=== PATIENT | male | born 1990 | race Caucasian/White ===

== ENCOUNTER 2024-09-16 12:18 | Emergency (ER) | payer MEDICAID ==
[~2024-09-16] VITALS: Ht 182.9 cm; Wt 68.0 kg
[2024-09-16 12:20] VITALS: O2SAT 96
[2024-09-16 12:52] LABS: BASOPHILS % 0.6 % (0.0-2.0); HEMATOCRIT. 39.1 % (42.0-52.0); HEMOGLOBIN. 13.1 g/dL (14.0-18.0); LYMPHOCYTES % 22.8 % (20.0-50.0); MEAN CORPUSCULAR HGB CONC 33.4 g/dL (31.0-37.0); MEAN CORPUSCULAR VOLUME 83.6 fL (80.0-94.0); MEAN PLATELET VOLUME 6.6 fl (7.4-10.4); MONOCYTES % 7.7 % (2.0-8.0); NEUTROPHILS % 67.9 % (40.0-76.0); PLATELET 215 x1000/uL (130-400); RED BLOOD CELL COUNT 4.68 mill/uL (4.7-6.1); RED CELL DISTRIBUTION WIDTH 13.6 % (11.6-14.6); WHITE BLOOD COUNT 5.8 x1000/uL (4.5-11.0)
[2024-09-16 12:59] LABS: CALCIUM 9.4 mg/dL (8.7-10.4); CARBON DIOXIDE 29 mEq/L (21-32); CHLORIDE 109 mEq/L (98-107); POTASSIUM 3.7 mEq/L (3.5-5.1); SODIUM 144 mEq/L (136-145)
[2024-09-16 13:04] LABS: CREATININE 0.8 mg/dL (0.6-1.3)
[2024-09-16 13:05] LABS: ETHANOL BLOOD < 10 mg/dL (<10); GLUCOSE 96 mg/dL (70-105); UREA NITROGEN BLOOD 11 mg/dL (9-23)
[2024-09-16] MEDS: ACETAMINOPHEN 500MG TABLET PO NR (15:30)
[2024-09-16] MEDS: IBUPROFEN 600MG TABLET PO NR (15:30)
[2024-09-16 17:00] VITALS: BP 122/82; PULSE 82; RESP 13; TEMP 36.6; O2SAT 100
== END 2024-09-16 17:31 | disposition home or self-care (01) ==
LOC: ER 12:18 → CANBEDREQ 13:40 → ER 17:31
DX: S06.9XAA Unspecified intracranial injury with loss of consciousness status unknown, initial encounter (principal); R44.0 Auditory hallucinations; V69.9XXA Occupant (driver) (passenger) of heavy transport vehicle injured in unspecified traffic accident, initial encounter; Y93.89 Activity, other specified; Y92.89 Other specified places as the place of occurrence of the external cause; Y99.8 Other external cause status
CPT/HCPCS: 80048; 80307; 80329; 80320; 85025; 36415; 70450; 99284; Z7610; G0480